=== PATIENT | female | born 1990 | race Caucasian/White ===

== ENCOUNTER 2016-08-24 05:12 | Day surgery (SDC) | payer OTHER ==
[~2016-08-24] VITALS: Ht 157.5 cm; Wt 53.0 kg
[~2016-08-24 05:12] MED LIST: BIRTH CONTROL PILLS; PRENATAL TABLE1 EAC3 PO; VITAMIN D2000 UNI1 PO
[2016-08-24 05:53] VITALS: BP 108/67
[2016-08-24 06:25] LABS: EOSINOPHIL (%) 0.8 % (0-5); HEMATOCRIT 37.1 % (36.0-46.0); IMMATURE GRANULOCYTE (%) 0.3 % (0.0-0.7); LYMPHOCYTE COUNT 1.5 K/uL (1.0-2.8); MCH 29.9 PG (29.0-34.0); MCHC 33.2 G/DL (30.0-36.0); MEAN PLAT.VOLUME 10.5 uM^3 (9.5-12.4); MONOCYTE (%) 7.6 % (3-12); MONOCYTE COUNT 0.3 K/uL (0-0.8); NEUTROPHIL (%) 51.6 % (45-76); PLATELET COUNT 236 K/uL (156-360); RBC DIS.WIDTH-CV 12.4 % (11.8-14.6); RBC DIS.WIDTH-SD 40.4 % (39-53); RED BLOOD COUNT 4.12 M/uL (3.80-5.20); WHITE BLOOD COUNT 3.9 K/uL (4.1-10.2)
[2016-08-24] MEDS ORDERED: MOTRIN800 MG PO (07:26)
[2016-08-24 09:20] VITALS: BP 113/64
[2016-08-24 10:30] VITALS: BP 126/58
== END 2016-08-24 10:35 | disposition home or self-care (01) ==
LOC: SDC 05:12
PROVIDERS: Obstetrics & Gynecology
DX: N84.0 Polyp of corpus uteri (principal); N97.9 Female infertility, unspecified; Z83.42 Family history of familial hypercholesterolemia; Z82.3 Family history of stroke; Z82.49 Family history of ischemic heart disease and other diseases of the circulatory system; Z80.0 Family history of malignant neoplasm of digestive organs
CPT/HCPCS: 84702; 85025; 86900; 86901; 88305; J1100; J1170; J1885; J2250; J2405; J2765; J3010